=== PATIENT | female | born 1950 | race Caucasian/White ===

== ENCOUNTER 2018-04-20 08:30 | Outpatient (RCR) | payer MEDICARE, OTHER, SELFPAY ==
--- NOTE | 2018-03-30 10:24 | HP.PTEVAL ---
Patient's Visit Information EAN BRUSH is a 67 year old F referred to Physical Therapy by Larry Valenzuela DO with a diagnosis of R shoulder impingment syndrome, Radiculopathy cervical region. Date of Evaluation: 03/30/18 Physical Therapist: Dorian Barragan - Visit Plan Frequency: 2-3x /Week Duration: 4 Weeks Plan: Start with manual vs mechanical traction, US to R levator scapulea/UT, postural education, cervical retraction. Progressing to postural strengthening once symptoms have reduced. - Subjective Subjective: Pt. is here today for her initial evaluation with diagnosis of R shoulder pain and cervical radiculopathy. Pt. reports I really think this pain is in my shoulder, but the doctor thinks its my neck. Pt. has a history of R RTC surgery. Pt. is retired, but work in a factory. Increased pain: with increase use of R arm, increased pain with sleeping (both difficult to get to sleep and does wake her up). No mechanism of injury noted. Pt. does sit at her computer a lot in a reclining chair, demonstrated slouched posture. Decreased pain: with analgesic creams and heating pad. Pt. denies N/T in RUE, but does report heaviness in RUE. Pt. is hopeful to reduce symptoms in order to get back to all recreational activities without limitations. - Pain R shoulder Pain Intensity (Out of 10): 6 Pain Intensity Range: 3, 10 Neck Pain Intensity (Out of 10): 0 Pain Intensity Range: 0, 4 Comment: Occassional R UT shooting pain very seldom - Objective POSTURE: Pt. has FH posture, rounded shoulders with increased shoulder height bilaterally. Pt. PALPATION: Pt. has increased tenderness at RUT, R levator scapulea, R C7-C4 erector spinea. Pt. reports o pain with lateral glides of C/S or gentle PAs. NEUROLOGICAL: All normal, intact no issues. ROM: CERVICAL: flexion nil loss NE, ext mod loss NE, rotaton L nil loss NE, rotation R nil/min loss increased R arm pain. L shoulder- full ROM without increase in symptoms. R shoulder- flexion 165deg increase pain at end range at subacromial region,. MMT:LUE- 5/5 throughout. RUE- wrist- flexion 5-/5 mild increase NW at wrist, ext 5/5 NE; elbow 5/5 throughout; shoulder- flexion 4=/5 mild increase NW, abd 4+/5 mild increase NW, ER 4+/5, IR 5/5 NE, ext 5/5 NE. - Special Tests C/S Radiculapathy - Left Spurlings: Negative C/S Radiculapathy - Right Spurlings: Positive C/S Radiculapathy - Left Relief test: Negative C/S Radiculapathy - Right Relief test: Positive Cervical Sitting: Protrusion - Mechanical Response: No effect Cervical Sitting: Protrusion - Symptoms During Testing: No effect Cervical Sitting: Protrusion - Symptoms After Testing: No effect Cervical Sitting: Retraction - Mechanical Response: No effect Cervical Sitting: Retraction - Symptoms During Testing: Decreases Cervical Sitting: Retraction - Symptoms After Testing: No better Cervical Sitting: Retraction-Extension - Mechanical Response: No effect Cerv Sitting: Retraction-Extension - Symptoms During Testing: No effect Cerv Sitting: Retraction-Extension - Symptoms After Testing: No effect Cervical Sitting: Sidebend Right - Symptoms During Testing: No effect Cervical Sitting: Sidebend Right - Symptoms After Testing: No effect Cervical Sitting: Sidebend Left - Symptoms During Testing: Produces Cervical Sitting: Sidebend Left - Symptoms After Testing: No effect Cervical Sitting: Rotation Right - Mechanical Response: No effect Cervical Sitting: Rotation Right - Symptoms During Testing: No effect Cervical Sitting: Rotation Right - Symptoms After Testing: No effect Cervical Sitting: Rotation Left - Mechanical Response: No effect Cervical Sitting: Rotation Left - Symptoms During Testing: No effect Cervical Sitting: Rotation Left - Symptoms After Testing: No effect Cervical Sitting: Flexion - Symptoms During Testing: Increases Cervical Sitting: Flexion - Symptoms After Testing: No worse R Shoulder Drop Sign - IS Test: Negative R Shoulder Empty Can - SS: Positive R Shoulder Belly Press - SupScap: Negative R Shoulder Neer - Impingement: Positive R Shoulder Summers Ryan - Impingement: Positive R Shoulder Biceps Load Test - Labrum: Negative R Shoulder Speeds Test - Labrum/Biceps: Negative - Goals Goal 1:: Pt. to be I with HEP. Goal Time Frame: 4-6 Weeks Goal 2:: Pt. to have increased cervical ROM by 25% without increase in R UE symptoms. Goal Time Frame: 4-6 Weeks Goal 3:: Pt. to have decreased RUE symptoms to 0-2/10 with all functional and daily actvities. Goal Time Frame: 4-6 Weeks Goal 4:: Pt. to sleep throughout the night without increase in symptoms. Goal Time Frame: 4-6 Weeks Goal 5:: Pt. to complete all ADLs without increase in symptoms. Goal Time Frame: 4-6 Weeks Goal 6:: Pt. to demonstrate improved posture throughout PT session indicating increased postural awareness. Goal Time Frame: 4-6 Weeks - Rehabilitation Potential Physical Therapy Diagnosis: Pt. has signs and symptoms consistent with R shoulder impingment syndrome, but also has signs consistent with R sided cervical radiculopathy. Pt. has increased tone with R sided cervical musculature, increased R shoulder pain with over head movements and radicular symptoms down R arm. Pt. would benefit from PT to address above issues, with focus on decompression manual activities and exercises, postural awareness and R shoulder stability exercises. Rehabilitation Potential: Good - Anticipated Interventions Patient/Client Instruction: Educate patient on: Condition, Plan of Care, Risk Factors, Benefits of Fitness Program For the Purpose of:: To assume or resume ADL's, To reduce risk of recurrence, To improve safety, To improve health and function, To foster healthy habits, To improve decision making, To facilitate caregiver knowledge, To improve self management, To prevent re-injury, To improve ability to perform tasks related to life management Therapeutic Exercise to Include: Strength training, Power training, Endurance training, Body mechanics, Postural training, Flexibilty training, Passive ROM, Active ROM, Scapular Strength/Stabilization For the Purpose of:: To decrease pain, To increase ROM, To improve nutrient delivery to tissue, To increase oxygenation perfusion, To improve muscle performance and motor function, To improve ability to perform ADL's, To improve health of tissue, To decrease soft tissue restriction, To increase flexibility/ROM Manual Therapy Techniques to Include: Petrissage, Trigger point massage, Mobilization, Passive ROM, Functional dry needling, Soft tissue mobilization For the Purpose of:: To decrease pain, To decrease swelling/inflammation, To increase ROM, To improve nutrient delivery to tissue, To improve muscle performance and motor function IF ES: Yes Cryotherapy (ice pack, ice massage): Yes Thermo therapy (hot pack): Yes Ultrasound (thermal/non thermal): Yes Intermittent cervical traction: Yes For the Purpose of:: To decrease pain, To increase ROM, To improve health of tissue, To decrease soft tissue restriction, To increase flexibility/ROM Thank you for the opportunity to evaluate your patient. For Medicare and Medicare HMO plans, please review the plan of care and approve it. It will need to be FAXED BACK to us at [phone] for Medicare purposes. Please let me know if there are questions or concerns regarding this plan of care. Physician Signature: Date:
--- NOTE | 2018-05-02 14:26 | HP.PTDCNRP_ITS ---
HP - Discharge Summary (1) - Patient Information EAN BRUSH was seen in my office for initial evaluation on 03/30/18. The following Plan of Care was established for this patient: Initial Frequency: 2-3x /Week Initial Duration: 4 Weeks - Anticipated Interventions Patient/Client Instruction: Educate patient on: Condition, Plan of Care, Risk Factors, Benefits of Fitness Program For the Purpose of:: To assume or resume ADL's, To reduce risk of recurrence, To improve safety, To improve health and function, To foster healthy habits, To improve decision making, To facilitate caregiver knowledge, To improve self elena gement, To prevent re-injury, To improve ability to perform tasks related to life management Therapeutic Exercise to Include: Strength training, Power training, Endurance training, Body mechanics, Postural training, Flexibilty training, Passive ROM, Active ROM, Scapular Strength/Stabilization For the Purpose of:: To decrease pain, To increase ROM, To improve nutrient delivery to tissue, To increase oxygenation perfusion, To improve muscle performance and motor function, To improve ability to perform ADL's, To improve health of tissue, To decrease soft tissue restriction, To increase flexibility/ROM Manual Therapy Techniques to Include: Petrissage, Trigger point massage, Mobilization, Passive ROM, Functional dry needling, Soft tissue mobilization For the Purpose of:: To decrease pain, To decrease swelling/inflammation, To increase ROM, To improve nutrient delivery to tissue, To improve muscle performance and motor function IF ES: Yes Cryotherapy (ice pack, ice massage): Yes Thermo therapy (hot pack): Yes Ultrasound (thermal/non thermal): Yes Intermittent cervical traction: Yes For the Purpose of:: To decrease pain, To increase ROM, To improve health of tissue, To decrease soft tissue restriction, To increase flexibility/ROM This patient was last seen in our office 04/10/18. Pertinent comments regarding their Physical therapy will appear below: Pt. was seen for her neck and shoulder pain. Pt. at her last visit reports that she is 95% better overall. Pt. was treated with modalities stretching and RTC stability exercises. Pt. is independent with her HEP and will be DC to HEP at this point in time. At this point I will be discontinuing this patient from physical therapy. I would be happy to see this patient again in the future if found appropriate by the physician. Thank you! Dorian Barragan
== END 2018-04-20 19:00 | disposition home or self-care (01) ==
LOC: PT 08:30
PROVIDERS: Family Provider Family Medicine; PCP Family Medicine; Visit Provider Orthopaedic Surgery
DX: M75.41 Impingement syndrome of right shoulder (principal); M54.12 Radiculopathy, cervical region; M25.511 Pain in right shoulder
CPT/HCPCS: 97035; 97110; 97140; 97162

== ENCOUNTER → 2020-02-26 10:22 | Outpatient (CLI) | payer MEDICARE, OTHER, SELFPAY ==
--- NOTE | 2020-02-26 10:40 | EKG12_ITS ---
Test Reason : PREOP Blood Pressure : / mmHG Vent. Rate : 049 BPM Atrial Rate : 049 BPM P-R Int : 146 ms QRS Dur : 086 ms QT Int : 522 ms P-R-T Axes : 031 049 041 degrees QTc Int : 471 ms Sinus bradycardia Low voltage QRS Borderline ECG Confirmed by JOANNE CORDOBA ([id number]), make up editor FERNIE DORSEY ([id number]) on 02/27/2020 2:37:40 PM Referred By: Carlota Prieto Confirmed By:JOANNE CORDOBA
[2020-02-26 10:43] LABS: Absolute Lymphocyte Count 1.59 X10^3/uL (0.83-4.51); Absolute Neutrophil Count 3.7 X10^3/uL (2.0-7.7); Basophil# 0.03 X10^3/uL; Basophil% 0.5 % (0-1); Eosinophil# 0.07 X10^3/uL; Eosinophils% 1.2 % (0-5); Hematocrit 37.7 % (37-47); Hemoglobin 12.3 g/dL (12.0-15.0); Lymphocyte # 1.59 X10^3/ul (4.0); Lymphocyte % 27.1 % (19-41); Mean Corp Hgb Conc 32.6 g/dL (32-36); Mean Corpuscular Hgb 28.9 pg (27.0-32.0); Mean Corpuscular Volume 88.5 fL (81-99); Mean Platelet Vol. 10.2 fl (6.2-12.0); Monocyte# 0.52 X10^3/uL; Monocyte% 8.9 % (0-10); NRBC Flagged by Analyzer 0 % (0-5); Neutrophil # 3.65 X10^3/uL (2.7-7.7); Neutrophil % 62.1 % (47-70); Platelet Count 234 K/mm3 (150-450); RBC Distribution Width CV 13.1 % (11.6-14.6); RBC Distribution Width SD 42.4 fl (35.1-43.9); Red Blood Count 4.26 M/mm3 (4.2-5.4); White Blood Count 5.9 K/mm3 (4.4-11.0)
[2020-02-26 11:26] LABS: Anion Gap 3 (5-15); BUN 14 mg/dL (7-18); BUN/Creat Ratio 18.2 RATIO (10-20); Calcium,Total 9.1 mg/dL (8.5-10.1); Chloride 105 mmol/L (98-107); Creatinine, Serum 0.77 mg/dL (0.55-1.02); EST Glomerular Filtration Rate 79 mL/min (>60); Est Glom Filt Rate - Afr Amer 95 mL/min (>60); Glucose 92 mg/dL (74-106); Sodium Level 138 mmol/L (136-145)
== END ==
PROVIDERS: PCP Nurse Practitioner Family; Referring Provider Registered Nurse; Visit Provider Registered Nurse
DX: Z01.818 Encounter for other preprocedural examination (principal); Z01.810 Encounter for preprocedural cardiovascular examination
CPT/HCPCS: 36415; 80048; 85025; 93005